=== PATIENT | male | born 1975 | race African-American/Black ===

== ENCOUNTER 2017-08-25 23:54 | Emergency (ER) | payer OTHER ==
[2017-08-26 00:27] LABS: INFLUENZA A PATIENT NEGATIVE (NEGATIVE)
[2017-08-26 00:28] LABS: INFLUENZA B PATIENT POSITIVE (NEGATIVE); OBC FLU VALID
[2017-08-26] MEDS: IBUPROFEN 400 MG TABLET. PO ×2 (00:30)
== END 2017-08-26 00:41 | disposition home or self-care (01) ==
LOC: ER 23:54
DX: J10.1 Influenza due to other identified influenza virus with other respiratory manifestations (principal)
CPT/HCPCS: 87804; 87804-59; 99284